=== PATIENT | female | born 1960 | race Caucasian/White ===

== ENCOUNTER 2023-02-09 19:09 | Inpatient (IN) | payer OTHER, MEDICAID ==
[~2023-02-09] VITALS: Ht 162.6 cm; Wt 67.6 kg
[2023-02-09 19:43] VITALS: BP_SYST 131; PULSE 108; RESP 18; TEMP 98.5; O2SAT 100
[2023-02-09] MEDS ORDERED: NACL 0.9% 1,000 ML IV ONE ×2 (20:15→22:00)
[2023-02-09] MEDS ORDERED: METOCLOPRAMIDE HCL 10 MG/2 ML VIAL IVP ONE (20:30)
[2023-02-09 20:52] LABS: HEMATOCRIT 35.6 % (36-48); HEMOGLOBIN 10.9 g/dL (12.0-16.0); MEAN CORPUSCULAR HEMOGLOBIN 35 pg (27-31); MEAN CORPUSCULAR HGB CONC 31 % (32-36); MEAN CORPUSCULAR VOLUME 116 fL (79.0-98.0); PLATELET COUNT (AUTO) 386 K/uL (130-430); RED BLOOD CELL COUNT(AUTO) 3.08 MIL/uL (4.2-6.2); RED CELL DISTRIBUTION WIDTH 20.5 % (9.0-15.0)
[2023-02-09 21:03] LABS: BILIRUBIN,URINE NEGATIVE (NEGATIVE); BLOOD, URINE NEGATIVE (NEGATIVE); CLARITY/URINE CLEAR (CLEAR); COLOR,URINE YELLOW (YELLOW); GLUCOSE,URINE 3+ (NEGATIVE); KETONES,URINE 3+ (NEGATIVE); LEUKOCYTE ESTERASE ,URINE NEGATIVE (NEGATIVE); NITRITE, URINE NEGATIVE (NEGATIVE); PROTEIN URINE TRACE (NEGATIVE); UROBILINOGEN,URINE 0.2 (0.2-1.0)
[2023-02-09] MEDS ORDERED: INSULIN REGULAR, HUMAN 10 UNITS/0.1 ML, 3 ML VIAL IVP ONE (21:30)
[2023-02-09 21:31] LABS: ALANINE AMINOTRANSFERASE 15 U/L (12-78); ALBUMIN 3.8 g/dL (3.4-4.8); ANION GAP 34 (5-15); ASPARTATE AMINOTRANSFERASE 19 U/L (10-37); CALCIUM 9.4 mg/dL (8.4-11.0); CHLORIDE 99 mmol/L (98-107); CREATININE 1.16 mg/dL (0.55-1.30); GFR AFRICAN AMERICAN 60 mL/min (>90); LIPASE 8 U/L (73-393); SODIUM SERUM 138 mmol/L (136-145); TOTAL BILIRUBIN 0.5 mg/dL (0.0-1.0); TOTAL PROTEIN, SERUM 7.9 g/dL (6.4-8.3); UREA NITROGEN, BLOOD 28 mg/dL (8-21)
[2023-02-09 21:32] LABS: GFR NON AFRICAN-AMERICAN 50 mL/min (>90)
[2023-02-09 21:36] LABS: CARBON DIOXIDE 5 mmol/L (23-29); GLUCOSE 452 mg/dL (74-106)
[2023-02-09 21:37] LABS: ABG O2 SAT% ESTIMATE 96.5 % (94.0-100.0); BLOOD GAS BASE EXCESS -25.6 mmol/L (-3.0-3.0); BLOOD GAS HCO3 2.9 mmol/L (21.0-27.0); BLOOD GAS PH 7.041 (7.350-7.450); BLOOD GAS PO2 118.8 mmHg (75.0-100.0)
[2023-02-09 21:38] LABS: ALLEN'S TEST POSITIVE (P)
[2023-02-09] MEDS ORDERED: NITROGLYCERIN 1 INCH (GM) OINT. TP ONE (21:45)
[2023-02-09] MEDS ORDERED: ASPIRIN 81 MG TABLET(ECOTRIN) PO ONE (21:45)
[2023-02-09 21:48] LABS: BAND % (MANUAL) 16 % (0-6); BASOPHILS % (MANUAL) 0 % (0-2); EOSINOPHILS % (MANUAL) 0 % (0-7); LYMPHOCYTES % (MANUAL) 8 % (20-46); MONOCYTES % (MANUAL) 2 % (0-11); PLATELET ESTIMATE ADEQUATE (ADEQUATE); POLYCHROMASIA 2+
[2023-02-09 21:49] LABS: ANISOCYTOSIS 2+; TEAR DROP CELLS MODERATE
[2023-02-09] MEDS ORDERED: NACL 0.9% 1,000 ML IV SCH (22:15)
[2023-02-09] MEDS ORDERED: INSULIN REGULAR, HUMAN 100 UNITS in NS 99 ML IV ONE ×2 (22:15)
[2023-02-09 22:20] LABS: BACTERIA,URINE FEW /HPF (None Seen); FINE GRANULAR CASTS,URINE 0-10 /LPF (None Seen); MUCUS,URINE 1+ /LPF (None Seen); RBC,URINE NONE SEEN /HPF (0-3)
[2023-02-09] MEDS ORDERED: CARB200T PO (23:33)
[2023-02-09] MEDS ORDERED: GABA800T PO (23:33)
[2023-02-09] MEDS ORDERED: MEMA5TAB PO (23:33)
[2023-02-10] VITALS (17 sets, daily range): BP systolic 86–134; PULSE 94–111; RESP 14–24; TEMP 96.3–97.8; O2SAT 95–100
[2023-02-10] MEDS ORDERED: INSULIN REGULAR, HUMAN 100 UNITS in NS 99 ML IV PRN ×2 (07:00)
[2023-02-10] MEDS ORDERED: DEXTROSE 50% JECT 50 ML DISP.SYRIN IVP PRN (07:00)
[2023-02-10] MEDS ORDERED: INSULIN REGULAR, HUMAN 10 UNITS/0.1 ML, 3 ML VIAL IVP ONE ×2 (07:00→09:00)
[2023-02-10 07:41] LABS: HEMATOCRIT 39.2 % (36-48); MEAN CORPUSCULAR HEMOGLOBIN 36 pg (27-31); MEAN CORPUSCULAR HGB CONC 28 % (32-36); MEAN CORPUSCULAR VOLUME 128 fL (79.0-98.0); PLATELET COUNT (AUTO) 442 K/uL (130-430); RED BLOOD CELL COUNT(AUTO) 3.07 MIL/uL (4.2-6.2); WHITE BLOOD COUNT (AUTO) 26.4 K/uL (4.8-10.8)
[2023-02-10] MEDS ORDERED: NS 500 ML IV ONE (08:00)
[2023-02-10] MEDS: ASPIRIN 81 MG TAB.CHEW PO SCH (09:00)
[2023-02-10] MEDS: METOPROLOL TARTRATE 25 MG TABLET PO SCH ×2 (09:00→21:11)
[2023-02-10 09:02] LABS: PROTHROMBIN TIME 10.3 SECS (9.5-12.5)
[2023-02-10] MEDS ORDERED: MORPHINE 2 MG/ML INJ. SYRINGE IVP PRN (09:30)
[2023-02-10] MEDS ORDERED: NALOXONE HCL 0.4 MG/ML AMP (NARCAN) IVP PRN (09:30)
[2023-02-10 09:32] LABS: ALANINE AMINOTRANSFERASE 21 U/L (12-78); ALBUMIN 3.7 g/dL (3.4-4.8); ANION GAP 36 (5-15); ASPARTATE AMINOTRANSFERASE 27 U/L (10-37); CALCIUM 8.6 mg/dL (8.4-11.0); CHLORIDE 102 mmol/L (98-107); CREATININE 1.89 mg/dL (0.55-1.30); GFR AFRICAN AMERICAN 34 mL/min (>90); LIPASE 112 U/L (73-393); PHOSPHORUS 10.2 mg/dL (2.7-4.5); POTASSIUM 5.4 mmol/L (3.5-5.1); SODIUM SERUM 143 mmol/L (136-145); THYROID STIMULATING HORMONE 3.36 uIu/mL (0.34-4.82); TOTAL BILIRUBIN 0.5 mg/dL (0.0-1.0); TOTAL PROTEIN, SERUM 7.9 g/dL (6.4-8.3); UREA NITROGEN, BLOOD 40 mg/dL (8-21)
[2023-02-10 09:36] LABS: GFR NON AFRICAN-AMERICAN 28 mL/min (>90)
[2023-02-10 09:38] LABS: CARBON DIOXIDE < 5 mmol/L (23-29); GLUCOSE 610 mg/dL (74-106)
[2023-02-10] MEDS ORDERED: VITD400 PO (10:00)
[2023-02-10] MEDS ORDERED: SIMV-341 PO (10:00)
[2023-02-10] MEDS ORDERED: METO-442 PO (10:00)
[2023-02-10] MEDS ORDERED: ASPI-1155 PO (10:00)
[2023-02-10] MEDS ORDERED: EZET10TA30 PO (10:11)
[2023-02-10] MEDS ORDERED: VITD2000 PO (10:11)
[2023-02-10] MEDS ORDERED: TOPI150C4 PO (10:12)
[2023-02-10] MEDS ORDERED: DIAZ2TAB3 PO (10:13)
[2023-02-10] MEDS ORDERED: DILT60TA3 PO (10:13)
[2023-02-10] MEDS ORDERED: HYDR-3925 PO (10:15)
[2023-02-10] MEDS ORDERED: EMPA1TAB PO (10:15)
[2023-02-10] MEDS ORDERED: INSU100I26 SUBCUT (10:15)
[2023-02-10 10:17] LABS: ANISOCYTOSIS 1+; BAND % (MANUAL) 14 % (0-6); BASOPHILS % (MANUAL) 0 % (0-2); EOSINOPHILS % (MANUAL) 0 % (0-7); LYMPHOCYTES % (MANUAL) 10 % (20-46); METAMYELOCYTES % 1 % (0-0); MONOCYTES % (MANUAL) 9 % (0-11); PLATELET ESTIMATE INCREASED (ADEQUATE)
[2023-02-10] MEDS: PIPERACILLIN/TAZO 2.25G/DEX-IS 50 ML IV SCH ×2 (13:09→18:36)
[2023-02-10 15:40] LABS: CALCIUM 8.3 mg/dL (8.4-11.0); CREATININE 1.97 mg/dL (0.55-1.30); POTASSIUM 4.3 mmol/L (3.5-5.1)
[2023-02-10 17:25] LABS: ABG O2 SAT% ESTIMATE 95.2 % (94.0-100.0); BLOOD GAS PO2 94.3 mmHg (75.0-100.0)
[2023-02-10] MEDS ORDERED: NACL 0.9% 1,000 ML IV ONE (17:30)
[2023-02-10 17:31] LABS: BLOOD GAS HCO3 5.7 mmol/L (21.0-27.0); BLOOD GAS PCO2 16.9 mmHg (35.0-45.0); BLOOD GAS PH 7.145 (7.350-7.450)
[2023-02-10 17:32] LABS: ALLEN'S TEST POSITIVE (P)
[2023-02-10] MEDS: D5/0.45 NS 1,000 ML IV SCH (18:37)
[2023-02-10 22:08] LABS: BILIRUBIN,URINE 1+ (NEGATIVE); BLOOD, URINE 2+ (NEGATIVE); CLARITY/URINE CLEAR (CLEAR); COLOR,URINE YELLOW (YELLOW); GLUCOSE,URINE 2+ (NEGATIVE); KETONES,URINE 3+ (NEGATIVE); LEUKOCYTE ESTERASE ,URINE NEGATIVE (NEGATIVE); NITRITE, URINE NEGATIVE (NEGATIVE); PROTEIN URINE 1+ (NEGATIVE); UROBILINOGEN,URINE 0.2 (0.2-1.0)
[2023-02-10] MEDS: MORPHINE 4 MG INJ. 4 MG/ML VIAL IVP PRN (22:37)
[2023-02-10 22:46] LABS: BACTERIA,URINE FEW /HPF (None Seen)
[2023-02-10] MEDS: METOCLOPRAMIDE HCL 10 MG/2 ML VIAL IVP PRN (23:55)
[2023-02-11] VITALS (22 sets, daily range): BP systolic 99–145; PULSE 81–102; RESP 12–21; TEMP 96.7–98.4; O2SAT 93–100
[2023-02-11] MEDS: PIPERACILLIN/TAZO 2.25G/DEX-IS 50 ML IV SCH ×4 (00:08→17:42)
[2023-02-11 01:37] LABS: CALCIUM 7.7 mg/dL (8.4-11.0); CREATININE 1.74 mg/dL (0.55-1.30); PHOSPHORUS 3.9 mg/dL (2.7-4.5); POTASSIUM 4.7 mmol/L (3.5-5.1)
[2023-02-11] MEDS: MORPHINE 4 MG INJ. 4 MG/ML VIAL IVP PRN (03:02)
[2023-02-11 05:18] LABS: CALCIUM 7.7 mg/dL (8.4-11.0); CREATININE 1.86 mg/dL (0.55-1.30); POTASSIUM 4.2 mmol/L (3.5-5.1)
[2023-02-11] MEDS ORDERED: KETOROLAC TROMETHAMINE 30 MG VIAL IVP PRN (05:30)
[2023-02-11 05:37] LABS: ALBUMIN 2.8 g/dL (3.4-4.8); PHOSPHORUS 3.8 mg/dL (2.7-4.5); TOTAL BILIRUBIN 0.3 mg/dL (0.0-1.0); TOTAL PROTEIN, SERUM 6.2 g/dL (6.4-8.3)
[2023-02-11 05:41] LABS: BASOPHILS % (AUTO) 0.3 % (0.0-2.0); HEMATOCRIT 27.1 % (36-48); HEMOGLOBIN 8.8 g/dL (12.0-16.0); LYMPHOCYTES # (AUTO) 0.5 K/uL (1.0-5.5); LYMPHOCYTES % (AUTO) 8.2 % (20.5-51.5); MEAN CORPUSCULAR HEMOGLOBIN 35 pg (27-31); MEAN CORPUSCULAR HGB CONC 32 % (32-36); MONOCYTES % (AUTO) 15.2 % (1.7-9.3); NEUTROPHILS # (AUTO) 4.8 K/uL (1.8-7.7); NEUTROPHILS % (AUTO) 76.3 % (40.0-70.0); RED BLOOD CELL COUNT(AUTO) 2.51 MIL/uL (4.2-6.2); RED CELL DISTRIBUTION WIDTH 20.1 % (9.0-15.0)
[2023-02-11 05:44] LABS: MEAN CORPUSCULAR VOLUME 108 fL (79.0-98.0); PLATELET COUNT (AUTO) 195 K/uL (130-430); WHITE BLOOD COUNT (AUTO) 6.3 K/uL (4.8-10.8)
[2023-02-11] MEDS: D5/0.45 NS 1,000 ML IV SCH ×2 (05:48→17:42)
[2023-02-11] MEDS ORDERED: GABAPENTIN 400 MG CAPSULE PO SCH (06:00)
[2023-02-11 07:47] LABS: ABG O2 SAT% ESTIMATE 95.8 % (94.0-100.0); ALLEN'S TEST POSITIVE (P); BLOOD GAS BASE EXCESS -11.6 mmol/L (-3.0-3.0); BLOOD GAS HCO3 13.5 mmol/L (21.0-27.0); BLOOD GAS PCO2 29.1 mmHg (35.0-45.0); BLOOD GAS PH 7.285 (7.350-7.450); BLOOD GAS PO2 87.6 mmHg (75.0-100.0)
[2023-02-11] MEDS ORDERED: NS 500 ML IV ONE (08:00)
[2023-02-11] MEDS: ASPIRIN 81 MG TAB.CHEW PO SCH (08:12)
[2023-02-11] MEDS: BACLOFEN 10 MG TABLET PO SCH ×2 (08:12→21:04)
[2023-02-11] MEDS: METOPROLOL TARTRATE 25 MG TABLET PO SCH ×2 (08:13→21:05)
[2023-02-11] MEDS: HYDROcodone/ACETAMIN 7.5-325 MG TAB PO SCH ×2 (08:14→21:17)
[2023-02-11 08:30] LABS: CALCIUM 7.6 mg/dL (8.4-11.0); CREATININE 1.72 mg/dL (0.55-1.30); PHOSPHORUS 3.4 mg/dL (2.7-4.5); POTASSIUM 3.9 mmol/L (3.5-5.1)
[2023-02-11] MEDS ORDERED: INSULIN GLARGINE 100 UNITS/ML, 10 ML VIAL SUBCUT ONE (09:30)
[2023-02-11] MEDS: GABAPENTIN 400 MG CAPSULE PO SCH ×2 (13:38→21:06)
[2023-02-11] MEDS: INSULIN LISPRO SLIDING SCALE 100 UNITS/ML, 3 ML VIAL (humaLOG) SUBCUT PRN ×2 (17:44→21:22)
[2023-02-11] MEDS: METOCLOPRAMIDE HCL 10 MG/2 ML VIAL IVP PRN (17:46)
[2023-02-11] MEDS: FAMOTIDINE 20 MG TABLET PO SCH (21:06)
[2023-02-11] MEDS: INSULIN GLARGINE 100 UNITS/ML, 10 ML VIAL SUBCUT SCH (21:24)
[2023-02-12] VITALS (24 sets, daily range): BP systolic 98–177; PULSE 64–103; RESP 11–22; TEMP 97.8–98.6; O2SAT 95–100
[2023-02-12] MEDS: PIPERACILLIN/TAZO 2.25G/DEX-IS 50 ML IV SCH ×4 (00:47→18:00)
[2023-02-12] MEDS: LORazepam 2 MG/ML VIAL IVP PRN (03:09)
[2023-02-12] MEDS: GABAPENTIN 400 MG CAPSULE PO SCH ×3 (05:48→21:21)
[2023-02-12 05:50] LABS: ERYTHROCYTE SEDIMENTATION RATE 31 MM/HR (0-20)
[2023-02-12 06:09] LABS: BASOPHILS % (AUTO) 0.2 % (0.0-2.0); HEMATOCRIT 24.6 % (36-48); HEMOGLOBIN 8.2 g/dL (12.0-16.0); LYMPHOCYTES # (AUTO) 0.5 K/uL (1.0-5.5); MEAN CORPUSCULAR HEMOGLOBIN 36 pg (27-31); MEAN CORPUSCULAR HGB CONC 33 % (32-36); MEAN CORPUSCULAR VOLUME 107 fL (79.0-98.0); MONOCYTES # (AUTO) 0.6 K/uL (0.0-1.0); NEUTROPHILS # (AUTO) 3.2 K/uL (1.8-7.7); NEUTROPHILS % (AUTO) 74.8 % (40.0-70.0); PLATELET COUNT (AUTO) 178 K/uL (130-430); RED BLOOD CELL COUNT(AUTO) 2.31 MIL/uL (4.2-6.2); RED CELL DISTRIBUTION WIDTH 19.8 % (9.0-15.0); WHITE BLOOD COUNT (AUTO) 4.3 K/uL (4.8-10.8)
[2023-02-12 06:20] LABS: CALCIUM 7.6 mg/dL (8.4-11.0); CREATININE 1.14 mg/dL (0.55-1.30); PHOSPHORUS 2.4 mg/dL (2.7-4.5); POTASSIUM 3.4 mmol/L (3.5-5.1)
[2023-02-12] MEDS: FAMOTIDINE 20 MG TABLET PO SCH ×2 (08:38→20:39)
[2023-02-12] MEDS: BACLOFEN 10 MG TABLET PO SCH ×2 (08:38→20:41)
[2023-02-12] MEDS: METOPROLOL TARTRATE 25 MG TABLET PO SCH ×2 (08:38→20:40)
[2023-02-12] MEDS: HYDROcodone/ACETAMIN 7.5-325 MG TAB PO SCH ×2 (08:40→20:41)
[2023-02-12] MEDS: INSULIN GLARGINE 100 UNITS/ML, 10 ML VIAL SUBCUT SCH ×2 (08:41→20:51)
[2023-02-12] MEDS: ASPIRIN 81 MG TAB.CHEW PO SCH (09:00)
[2023-02-12] MEDS ORDERED: CALCIUM GLUCONATE 2 GM in NS 100 ML IV ONE (12:00)
[2023-02-12] MEDS ORDERED: K PHOS 15 MM in NS 250 ML IV ONE (13:00)
[2023-02-12] MEDS: D5/0.45 NS 1,000 ML IV SCH (13:11)
[2023-02-13] VITALS (25 sets, daily range): BP systolic 92–175; PULSE 63–100; RESP 10–26; TEMP 96.2–98.5; O2SAT 91–100
[2023-02-13] MEDS: PIPERACILLIN/TAZO 2.25G/DEX-IS 50 ML IV SCH ×2 (00:08→05:16)
[2023-02-13] MEDS: GABAPENTIN 400 MG CAPSULE PO SCH ×3 (05:19→20:46)
[2023-02-13 05:40] LABS: ERYTHROCYTE SEDIMENTATION RATE 53 MM/HR (0-20)
[2023-02-13 05:44] LABS: BASOPHILS % (AUTO) 0.1 % (0.0-2.0); HEMATOCRIT 28.1 % (36-48); HEMOGLOBIN 9.4 g/dL (12.0-16.0); LYMPHOCYTES # (AUTO) 0.5 K/uL (1.0-5.5); LYMPHOCYTES % (AUTO) 12.1 % (20.5-51.5); MEAN CORPUSCULAR HEMOGLOBIN 36 pg (27-31); MEAN CORPUSCULAR HGB CONC 34 % (32-36); MEAN CORPUSCULAR VOLUME 106 fL (79.0-98.0); MONOCYTES # (AUTO) 0.5 K/uL (0.0-1.0); MONOCYTES % (AUTO) 11.7 % (1.7-9.3); NEUTROPHILS # (AUTO) 3.3 K/uL (1.8-7.7); NEUTROPHILS % (AUTO) 76.1 % (40.0-70.0); PLATELET COUNT (AUTO) 168 K/uL (130-430); RED BLOOD CELL COUNT(AUTO) 2.66 MIL/uL (4.2-6.2); RED CELL DISTRIBUTION WIDTH 18.8 % (9.0-15.0); WHITE BLOOD COUNT (AUTO) 4.4 K/uL (4.8-10.8)
[2023-02-13 06:16] LABS: CALCIUM 8.8 mg/dL (8.4-11.0); CREATININE 0.98 mg/dL (0.55-1.30); PHOSPHORUS 2.7 mg/dL (2.7-4.5); POTASSIUM 3.2 mmol/L (3.5-5.1); TOTAL BILIRUBIN 0.5 mg/dL (0.0-1.0); TOTAL PROTEIN, SERUM 6.8 g/dL (6.4-8.3)
[2023-02-13] MEDS: INSULIN LISPRO SLIDING SCALE 100 UNITS/ML, 3 ML VIAL (humaLOG) SUBCUT PRN ×3 (06:22→21:03)
[2023-02-13] MEDS: D5/0.45 NS 1,000 ML IV SCH ×3 (08:39→23:20)
[2023-02-13] MEDS: BACLOFEN 10 MG TABLET PO SCH ×2 (08:40→20:41)
[2023-02-13] MEDS: ASPIRIN 81 MG TAB.CHEW PO SCH (08:40)
[2023-02-13] MEDS: FAMOTIDINE 20 MG TABLET PO SCH ×2 (08:41→20:42)
[2023-02-13] MEDS: HYDROcodone/ACETAMIN 7.5-325 MG TAB PO SCH ×2 (08:41→20:37)
[2023-02-13] MEDS: CHOLECALCIFEROL (VITAMIN D3) 2,000 UNIT TABLET PO SCH (08:41)
[2023-02-13] MEDS: METOPROLOL TARTRATE 25 MG TABLET PO SCH ×2 (08:42→20:41)
[2023-02-13] MEDS: INSULIN GLARGINE 100 UNITS/ML, 10 ML VIAL SUBCUT SCH ×2 (08:47→21:06)
[2023-02-13] MEDS: LORazepam 2 MG/ML VIAL IVP PRN ×2 (11:20→23:20)
[2023-02-13] MEDS: metroNIDAZOLE 500 mg/NS 100 ML IV SCH (20:41)
[2023-02-14 01:15] VITALS: BP_SYST 139; PULSE 78; RESP 16; TEMP 97.1; O2SAT 99
[2023-02-14] MEDS: GABAPENTIN 400 MG CAPSULE PO SCH (05:37)
[2023-02-14] MEDS: INSULIN LISPRO SLIDING SCALE 100 UNITS/ML, 3 ML VIAL (humaLOG) SUBCUT PRN ×2 (05:40→21:05)
[2023-02-14 05:46] LABS: BASOPHILS % (AUTO) 0.1 % (0.0-2.0); HEMATOCRIT 26.4 % (36-48); HEMOGLOBIN 8.7 g/dL (12.0-16.0); LYMPHOCYTES # (AUTO) 0.7 K/uL (1.0-5.5); LYMPHOCYTES % (AUTO) 18.9 % (20.5-51.5); MEAN CORPUSCULAR HEMOGLOBIN 35 pg (27-31); MEAN CORPUSCULAR HGB CONC 33 % (32-36); MEAN CORPUSCULAR VOLUME 105 fL (79.0-98.0); MONOCYTES # (AUTO) 0.5 K/uL (0.0-1.0); MONOCYTES % (AUTO) 13.6 % (1.7-9.3); NEUTROPHILS # (AUTO) 2.5 K/uL (1.8-7.7); NEUTROPHILS % (AUTO) 67.4 % (40.0-70.0); PLATELET COUNT (AUTO) 138 K/uL (130-430); RED CELL DISTRIBUTION WIDTH 17.8 % (9.0-15.0); WHITE BLOOD COUNT (AUTO) 3.7 K/uL (4.8-10.8)
[2023-02-14 05:54] LABS: CREATININE 0.67 mg/dL (0.55-1.30); PHOSPHORUS 3.8 mg/dL (2.7-4.5)
[2023-02-14 06:07] LABS: POTASSIUM 2.4 mmol/L (3.5-5.1)
[2023-02-14] MEDS ORDERED: POTASSIUM CHLORIDE 20 MEQ/PKT PACKET PO ONE (06:30)
[2023-02-14 06:31] LABS: ERYTHROCYTE SEDIMENTATION RATE 50 MM/HR (0-20)
[2023-02-14] MEDS ORDERED: KCL 40 mEq in 100 mL (PREMIX) 100 ML IV ONE (07:15)
[2023-02-14] MEDS: POTASSIUM CHLORIDE 20 mEq in 100 mL (PREMIX) 100 ML x 2 doses IV SCH ×3 (07:24→10:05)
[2023-02-14] MEDS: LORazepam 2 MG/ML VIAL IVP PRN ×2 (07:24→21:36)
[2023-02-14 08:02] VITALS: BP_SYST 124; PULSE 84; RESP 17; TEMP 96.6; O2SAT 100
[2023-02-14 08:07] VITALS: BP_SYST 124; PULSE 84; RESP 17; TEMP 96.6; O2SAT 100
[2023-02-14] MEDS ORDERED: POTASSIUM CHLORIDE 40 MEQ, MAGNESIUM SULFATE 2 GM in 0.45% NS 250 ML IV ONE (08:15)
[2023-02-14] MEDS: METOPROLOL TARTRATE 25 MG TABLET PO SCH ×2 (09:00→20:56)
[2023-02-14] MEDS: ASPIRIN 81 MG TAB.CHEW PO SCH (09:00)
[2023-02-14] MEDS: CHOLECALCIFEROL (VITAMIN D3) 2,000 UNIT TABLET PO SCH ×2 (09:00→20:55)
[2023-02-14] MEDS: D5/0.45 NS 1,000 ML IV SCH (10:00)
[2023-02-14] MEDS: metroNIDAZOLE 500 mg/NS 100 ML IV SCH ×2 (10:04→20:56)
[2023-02-14] MEDS: INSULIN GLARGINE 100 UNITS/ML, 10 ML VIAL SUBCUT SCH ×2 (10:23→21:07)
[2023-02-14] MEDS ORDERED: POTASSIUM CHLORIDE 20 MEQ TAB.PRT.SR PO ONE (10:30)
[2023-02-14] MEDS ORDERED: CALCIUM GLUCONATE 2 GM in NS 100 ML IV ONE (12:00)
[2023-02-14 12:01] VITALS: BP_SYST 121; PULSE 97; RESP 18; TEMP 96.6; O2SAT 97
[2023-02-14 15:47] VITALS: BP_SYST 128; PULSE 80; RESP 16; TEMP 96.8; O2SAT 97
[2023-02-14 19:47] VITALS: O2SAT 98
[2023-02-14] MEDS ORDERED: NALOXONE HCL 0.4 MG/ML AMP (NARCAN) IVP PRN (21:30)
[2023-02-14] MEDS ORDERED: HYDROcodone/ACETAMIN 5-325 MG TAB (NORCO/ VICODIN) PO PRN (21:30)
[2023-02-15 00:57] VITALS: BP_SYST 147; PULSE 88; RESP 20; TEMP 97.6; O2SAT 99
[2023-02-15] MEDS: LORazepam 2 MG/ML VIAL IVP PRN ×2 (01:37→06:06)
[2023-02-15] MEDS: D5/0.45 NS 1,000 ML IV SCH ×2 (01:38→10:34)
[2023-02-15 06:14] LABS: BASOPHILS % (AUTO) 0.1 % (0.0-2.0); HEMATOCRIT 27.4 % (36-48); HEMOGLOBIN 9.2 g/dL (12.0-16.0); LYMPHOCYTES # (AUTO) 0.8 K/uL (1.0-5.5); MEAN CORPUSCULAR HEMOGLOBIN 35 pg (27-31); MEAN CORPUSCULAR HGB CONC 34 % (32-36); MEAN CORPUSCULAR VOLUME 105 fL (79.0-98.0); MONOCYTES # (AUTO) 0.7 K/uL (0.0-1.0); MONOCYTES % (AUTO) 16.3 % (1.7-9.3); NEUTROPHILS # (AUTO) 2.5 K/uL (1.8-7.7); NEUTROPHILS % (AUTO) 62.6 % (40.0-70.0); PLATELET COUNT (AUTO) 150 K/uL (130-430); RED BLOOD CELL COUNT(AUTO) 2.61 MIL/uL (4.2-6.2); RED CELL DISTRIBUTION WIDTH 17.2 % (9.0-15.0)
[2023-02-15 06:23] LABS: ERYTHROCYTE SEDIMENTATION RATE 54 MM/HR (0-20)
[2023-02-15 06:32] LABS: CALCIUM 8.3 mg/dL (8.4-11.0); CREATININE 0.68 mg/dL (0.55-1.30)
[2023-02-15] MEDS ORDERED: COMMUNICATION ORDER XX ONE (08:15)
[2023-02-15 08:42] LABS: POTASSIUM 2.7 mmol/L (3.5-5.1)
[2023-02-15 08:45] VITALS: BP_SYST 163; PULSE 77; RESP 18; TEMP 97.7; O2SAT 100
[2023-02-15] MEDS: ASPIRIN 81 MG TAB.CHEW PO SCH (08:53)
[2023-02-15] MEDS: metroNIDAZOLE 500 mg/NS 100 ML IV SCH (08:53)
[2023-02-15] MEDS: CHOLECALCIFEROL (VITAMIN D3) 2,000 UNIT TABLET PO SCH (08:53)
[2023-02-15] MEDS: METOPROLOL TARTRATE 25 MG TABLET PO SCH (08:58)
[2023-02-15] MEDS ORDERED: POTASSIUM CHLORIDE 60 MEQ, LIDOCAINE JECT 2% PF 100 MG 50 MG in NS 500 ML IV ONE (09:00)
[2023-02-15] MEDS: INSULIN GLARGINE 100 UNITS/ML, 10 ML VIAL SUBCUT SCH (09:10)
[2023-02-15 12:00] VITALS: BP_SYST 153; PULSE 80; RESP 19; TEMP 97.2; O2SAT 97
[2023-02-15] MEDS ORDERED: LEVO-62 PO (15:51)
[2023-02-15] MEDS ORDERED: INSU100I26 SUBCUT (15:51)
[2023-02-15 16:16] VITALS: BP_SYST 149; PULSE 85; RESP 20; TEMP 97.7; O2SAT 98
[2023-02-15 16:51] VITALS: BP_SYST 149; PULSE 85; RESP 20; TEMP 97.7; O2SAT 99
== END 2023-02-15 17:20 | disposition home health service (06) | DRG 871 ==
LOC: SED 19:09 → SIC 22:11 → STU 02-13 22:54
PROVIDERS: ADMIT Preventive Medicine Preventive Medicine/Occupational Environmental Medicine; ATTEND Preventive Medicine Preventive Medicine/Occupational Environmental Medicine
PROC: 05H533Z Insertion of Infusion Device into Right Subclavian Vein, Percutaneous Approach (ICD-10-PCS; 2023-02-09)
PROC: B546ZZA Ultrasonography of Right Subclavian Vein, Guidance (ICD-10-PCS; 2023-02-09)
PROC: 4A00X4Z Measurement of Central Nervous Electrical Activity, External Approach (ICD-10-PCS; principal; 2023-02-13)
DX: A41.9 Sepsis, unspecified organism (principal); E11.10 Type 2 diabetes mellitus with ketoacidosis without coma; I21.4 Non-ST elevation (NSTEMI) myocardial infarction; G93.41 Metabolic encephalopathy; R57.1 Hypovolemic shock; J18.8 Other pneumonia, unspecified organism; C34.90 Malignant neoplasm of unspecified part of unspecified bronchus or lung; N17.9 Acute kidney failure, unspecified; J44.0 Chronic obstructive pulmonary disease with (acute) lower respiratory infection; K80.20 Calculus of gallbladder without cholecystitis without obstruction; E11.40 Type 2 diabetes mellitus with diabetic neuropathy, unspecified; E78.5 Hyperlipidemia, unspecified; E87.6 Hypokalemia; I25.10 Atherosclerotic heart disease of native coronary artery without angina pectoris; K44.9 Diaphragmatic hernia without obstruction or gangrene; D64.9 Anemia, unspecified; I50.9 Heart failure, unspecified; I11.0 Hypertensive heart disease with heart failure; E11.42 Type 2 diabetes mellitus with diabetic polyneuropathy; E88.09 Other disorders of plasma-protein metabolism, not elsewhere classified; K57.30 Diverticulosis of large intestine without perforation or abscess without bleeding; E83.51 Hypocalcemia; Z95.1 Presence of aortocoronary bypass graft; Z85.89 Personal history of malignant neoplasm of other organs and systems; Z79.4 Long term (current) use of insulin; Z79.82 Long term (current) use of aspirin; Z85.118 Personal history of other malignant neoplasm of bronchus and lung; Z87.891 Personal history of nicotine dependence; Z90.710 Acquired absence of both cervix and uterus; Z92.21 Personal history of antineoplastic chemotherapy; Z95.5 Presence of coronary angioplasty implant and graft; I25.2 Old myocardial infarction
CPT/HCPCS: 36415; 36600; 70450-TC; 71045; 76376; 80048; 80053; 81000; 81001; 82009; 82306; 82803; 82962; 83605; 83690; 83735; 83880; 84100; 84443; 84484; 85007; 85025; 85027; 85610-TC; 85651-TC; 87040; 87081; 93005; 93306; 95816; 97112-GP; 97530-GP; 99291; G0378; J0610; J0696; J1815; J2060; J2270; J2543; J2765; J3480; J3490; J7040; J7050; J7060

== ENCOUNTER 2023-10-23 10:50 | Inpatient (IN) | payer OTHER, MEDICAID ==
[~2023-10-23] VITALS: Ht 165.1 cm; Wt 72.4 kg
[~2023-10-23 10:50] MED LIST: ASPI-1155 PO; CARB200T PO; DIAZ2TAB3 PO; DILT60TA3 PO; EMPA1TAB PO; EZET10TA30 PO; GABA800T PO; HYDR-3925 PO; INSU100I26 SUBCUT; LEVO-62 PO; MEMA5TAB PO; METO-442 PO; SIMV-341 PO; TOPI150C4 PO; VITD2000 PO
[2023-10-23 10:58] VITALS: BP_SYST 96; PULSE 69; RESP 20; TEMP 97.6; O2SAT 100
[2023-10-23] MEDS: NALOXONE HCL 2 MG/2 ML SYR IVP ONE (11:22)
[2023-10-23 12:29] LABS: BASOPHILS % (AUTO) 0.3 % (0.0-2.0); HEMATOCRIT 31.1 % (36-48); HEMOGLOBIN 10.5 g/dL (12.0-16.0); LYMPHOCYTES # (AUTO) 0.7 K/uL (1.0-5.5); LYMPHOCYTES % (AUTO) 8.9 % (20.5-51.5); MEAN CORPUSCULAR HEMOGLOBIN 35 pg (27-31); MEAN CORPUSCULAR HGB CONC 34 % (32-36); MEAN CORPUSCULAR VOLUME 103 fL (79.0-98.0); MONOCYTES # (AUTO) 0.5 K/uL (0.0-1.0); MONOCYTES % (AUTO) 6.2 % (1.7-9.3); NEUTROPHILS # (AUTO) 6.4 K/uL (1.8-7.7); NEUTROPHILS % (AUTO) 84.6 % (40.0-70.0); PLATELET COUNT (AUTO) 151 K/uL (130-430); RED BLOOD CELL COUNT(AUTO) 3.02 MIL/uL (4.2-6.2); RED CELL DISTRIBUTION WIDTH 13.4 % (9.0-15.0); WHITE BLOOD COUNT (AUTO) 7.6 K/uL (4.8-10.8)
[2023-10-23 12:42] LABS: INR 0.9 (0.8-1.2); PROTHROMBIN TIME 9.7 SECS (9.5-12.5)
[2023-10-23 12:53] LABS: ACETONE, SERUM NEGATIVE (NEGATIVE)
[2023-10-23 13:08] LABS: ALANINE AMINOTRANSFERASE 12 U/L (12-78); ALBUMIN 2.7 g/dL (3.4-4.8); ANION GAP 11 (5-15); ASPARTATE AMINOTRANSFERASE 9 U/L (10-37); BILIRUBIN,DIRECT 0.1 mg/dL (0.0-0.3); CALCIUM 7.9 mg/dL (8.4-11.0); CARBON DIOXIDE 24 mmol/L (23-29); CHLORIDE 105 mmol/L (98-107); CREATINE KINASE, TOTAL 23 U/L (26-192); CREATININE 0.65 mg/dL (0.55-1.30); GFR AFRICAN AMERICAN 118 mL/min (>90); GFR NON AFRICAN-AMERICAN 97 mL/min (>90); GLUCOSE 235 mg/dL (74-106); SALICYLATE 1 mg/dL (3-30); SODIUM SERUM 140 mmol/L (136-145); TOTAL BILIRUBIN 0.2 mg/dL (0.0-1.0); TOTAL PROTEIN, SERUM 6.7 g/dL (6.4-8.3); UREA NITROGEN, BLOOD 8 mg/dL (8-21)
[2023-10-23 13:09] LABS: ACETAMINOPHEN < 1 ug/mL (1-30); ALCOHOL, BLOOD < 3 mg/dL (<10)
[2023-10-23] MEDS: D5/0.45 NS 1,000 ML IV SCH (14:00)
[2023-10-23] MEDS ORDERED: EZET10TA30 PO (14:18)
[2023-10-23] MEDS ORDERED: OMEG-158 PO (14:18)
[2023-10-23] MEDS ORDERED: POTA8TAB66 PO (14:18)
[2023-10-23] MEDS ORDERED: MAGN400T10 PO (14:18)
[2023-10-23] MEDS ORDERED: LEVO100T9 PO (14:28)
[2023-10-23] MEDS ORDERED: B12/1TAB5 PO (14:29)
[2023-10-23 16:30] VITALS: BP_SYST 123; PULSE 63; RESP 16; TEMP 98
[2023-10-23 19:31] VITALS: BP_SYST 103; PULSE 66; RESP 18; TEMP 97.3; O2SAT 100
[2023-10-23] MEDS ORDERED: SODIUM POLYSTYRENE SULFONATE 15 GM/60 ML UDBTL RC ONE (20:00)
[2023-10-23] MEDS: SODIUM POLYSTYRENE SULFONATE 15 GM/60 ML UDBTL PO ONE (20:41)
[2023-10-24 00:12] VITALS: BP_SYST 152; PULSE 81; RESP 16; TEMP 97.8; O2SAT 98
[2023-10-24 07:49] VITALS: BP_SYST 115; PULSE 89; RESP 14; TEMP 97.3; O2SAT 99
[2023-10-24 10:37] VITALS: O2SAT 99
[2023-10-24 12:16] VITALS: BP_SYST 122; PULSE 105; RESP 18; TEMP 98.1; O2SAT 99
[2023-10-24] MEDS ORDERED: NALOXONE HCL 0.4 MG/ML AMP (NARCAN) IVP PRN ×3 (13:45)
[2023-10-24] MEDS ORDERED: ACETAMINOPHEN 325 MG TABLET PO PRN ×2 (13:45→14:15)
[2023-10-24] MEDS ORDERED: HYDROcodone/ACETAMIN 10-325 MG TAB PO PRN ×2 (13:45)
[2023-10-24] MEDS ORDERED: LORazepam 2 MG/ML VIAL IVP PRN (13:45)
[2023-10-24] MEDS ORDERED: HYDROcodone/ACETAMIN 5-325 MG TAB (NORCO/ VICODIN) PO PRN (13:45)
[2023-10-24] MEDS ORDERED: NORMAL SALINE 5 ML DISP.SYRIN IVF SCH (14:00)
[2023-10-24] MEDS ORDERED: GABAPENTIN 400 MG CAPSULE PO SCH (15:00)
[2023-10-24] MEDS ORDERED: MEMANTINE HCL 5 MG TABLET PO SCH (21:00)
[2023-10-24] MEDS ORDERED: INSULIN GLARGINE 100 UNITS/ML, 10 ML VIAL SUBCUT SCH (21:00)
[2023-10-24] MEDS ORDERED: SIMVASTATIN 10 MG TABLET PO SCH (21:00)
[2023-10-24] MEDS ORDERED: POTASSIUM CHLORIDE 8 MEQ TABLET.ER PO SCH (21:00)
[2023-10-25] MEDS ORDERED: LEVOTHYROXINE SODIUM 0.1 MG TABLET PO SCH (06:00)
[2023-10-25] MEDS ORDERED: CHOLECALCIFEROL (VITAMIN D3) 2,000 UNIT TABLET PO SCH (09:00)
[2023-10-25] MEDS ORDERED: DILTIAZEM HCL 60 MG TABLET PO SCH (09:00)
[2023-10-25] MEDS ORDERED: ASPIRIN 81 MG TAB.CHEW PO SCH (09:00)
[2023-10-25] MEDS ORDERED: EZETIMIBE 10 MG TABLET PO SCH (09:00)
[2023-10-25] MEDS ORDERED: MAGNESIUM OXIDE 400 MG TABLET PO SCH (09:00)
[2023-10-25] MEDS ORDERED: OMEGA-3/DHA/EPA/FISH OIL 1 GM CAPSULE PO SCH (09:00)
[2023-10-25] MEDS ORDERED: METOPROLOL TARTRATE 50 MG TABLET PO SCH (09:00)
[2023-10-25] MEDS ORDERED: TOPIRAMATE 100 MG TABLET(Topamax) PO SCH (09:00)
== END 2023-10-24 14:16 | disposition left against medical advice (07) | DRG 917 ==
LOC: SED 10:50 → STU 14:03
PROVIDERS: ADMIT Preventive Medicine Preventive Medicine/Occupational Environmental Medicine; ATTEND Preventive Medicine Preventive Medicine/Occupational Environmental Medicine
DX: T39.1X1A Poisoning by 4-Aminophenol derivatives, accidental (unintentional), initial encounter (principal); E43 Unspecified severe protein-calorie malnutrition; G92.8 Other toxic encephalopathy; E87.20 Acidosis, unspecified; E78.5 Hyperlipidemia, unspecified; I10 Essential (primary) hypertension; E87.5 Hyperkalemia; E55.9 Vitamin D deficiency, unspecified; E88.09 Other disorders of plasma-protein metabolism, not elsewhere classified; E11.65 Type 2 diabetes mellitus with hyperglycemia; Z85.118 Personal history of other malignant neoplasm of bronchus and lung; Z79.899 Other long term (current) drug therapy; D64.9 Anemia, unspecified; Z68.26 Body mass index [BMI] 26.0-26.9, adult
CPT/HCPCS: 36415; 70450-TC; 71045; 80048; 80076; 80156; 82009; 82140; 82550; 83605; 84484; 85025; 85610; 85730; 87040; 93005; 96374; 99291; G0378; G0480; G0481; G0482; J1815